=== PATIENT | male | born 1965 | race African-American/Black ===

== ENCOUNTER 2021-07-05 19:57 | Emergency (ER) | payer MEDICARE, MEDICAID ==
[~2021-07-05] VITALS: Ht 175.3 cm; Wt 118.2 kg
[2021-07-05 21:21] LABS: BILIRUBIN,URINE NEGATIVE (NEG); CLARITY,URINE CLEAR; COLOR,URINE YELLOW; NITRITE,URINE NEGATIVE (NEG); PROTEIN,URINE 100 mg/dL (NEG-TRACE); UROBILINOGEN,URINE 0.2 mg/dL (0.2 mg/dL)
[2021-07-05 21:29] LABS: BACTERIA,URINE FEW /HPF (0-FEW); WBC,URINE TNTC /HPF (0-4)
[2021-07-05] MEDS ORDERED: CIPR500T2 PO (22:02)
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
[2021-07-05 22:30] VITALS: BP 154/83
[2021-07-05] MEDS ORDERED: CIPROFLOXACIN HCL 250 MG TABLET. PO ONE (22:30)
== END 2021-07-05 22:29 | disposition home or self-care (01) ==
LOC: ER 19:57
DX: N39.0 Urinary tract infection, site not specified (principal); F31.9 Bipolar disorder, unspecified; I10 Essential (primary) hypertension; G89.29 Other chronic pain; F17.200 Nicotine dependence, unspecified, uncomplicated; Z88.5 Allergy status to narcotic agent
CPT/HCPCS: 81001; 87086; 99283